=== PATIENT | female | born 1960 | race Two or more races ===

== ENCOUNTER 2016-11-18 09:18 | Emergency (ER) | payer SELFPAY ==
[~2016-11-18] VITALS: Ht 152.4 cm; Wt 78.0 kg
[2016-11-18 10:37] LABS: HEMATOCRIT 41.2 % (36.0-46.0); MCH 29.2 PG (29.0-34.0); MCHC 33.7 G/DL (30.0-36.0); MCV 86.6 FL (83-99); MEAN PLAT.VOLUME 9.8 uM^3 (9.5-12.4); PLATELET COUNT 242 K/uL (156-360); RBC DIS.WIDTH-CV 12.9 % (11.8-14.6); RBC DIS.WIDTH-SD 40.7 % (39-53); RED BLOOD COUNT 4.76 M/uL (3.80-5.20); WHITE BLOOD COUNT 6.4 K/uL (4.1-10.2)
[2016-11-18 10:40] LABS: ADD MIUA? YES; BILIRUBIN NEGATIVE; BLOOD SMALL; COLOR YELLOW ((YELLOW)); GLUCOSE (STRIP) NEGATIVE; KETONES NEGATIVE; LEUKOCYTES TRACE; NITRITE NEGATIVE; PROTEIN (STRIP) NEGATIVE; SPECIFIC GRAVITY 1.019 (1.000-1.030); UROBILINOGEN 0.2 MG/DL (0.2-1.0)
[2016-11-18 10:43] LABS: BACTERIA NONE SEEN /HPF; EPITHELIAL CELLS RARE /HPF; MUCUS TRACE /LPF; RED BLOOD CELLS 0-5 /HPF (0-5); UCUL ADDED? NO; WHITE BLOOD CELLS 0-5 /HPF (0-5)
[2016-11-18 10:51] LABS: CHLORIDE 110 mEq/L (99-109); POTASSIUM 4.2 mEq/L (3.7-5.4); SODIUM 143 mEq/L (136-147)
[2016-11-18 10:53] LABS: GLUCOSE 90 mg/dL (70-99)
[2016-11-18 10:54] LABS: ANION GAP 9 MEQ/L (2-14)
[2016-11-18 10:55] LABS: TOTAL BILIRUBIN 0.4 mg/dL (0.0-1.0)
[2016-11-18 10:57] LABS: ALKALINE PHOSPHATASE 88 IU/L (3-129); GFR ESTIMATE (CALCULATED) > 59 mL/min/
[2016-11-18 10:58] LABS: UREA NITROGEN (BUN) 13 mg/dL (9-23)
[2016-11-18] MEDS ORDERED: MECLIZINE HCL25 MG PO (12:08)
[2016-11-18 12:33] VITALS: BP 139/66
== END 2016-11-18 12:34 | disposition home or self-care (01) ==
LOC: EME 09:18
PROVIDERS: Emergency Medicine
DX: R42 Dizziness and giddiness (principal); H93.11 Tinnitus, right ear
CPT/HCPCS: 70450; 80053; 81003; 85027; 93005; 99281; 99285; J7030